=== PATIENT | male | born 1960 | race Caucasian/White ===

== ENCOUNTER 2019-05-21 07:49 | Day surgery (SDC) | payer OTHER ==
[~2019-05-21] VITALS: Ht 167.6 cm; Wt 87.5 kg
[2019-05-21] VITALS (15 sets, daily range): BP systolic 132–160; BP diastolic 88–104; PULSE 64–73; RESP 12–20; Ht 167.6 cm; Wt 87.5 kg
[~2019-05-21 07:49] MED LIST: CEFAZOLIN 2 GM/50 ML (PMX) 50 ML IVPB ONE; SOD CHLORIDE 0.9% 1,000 ML IV SCH; TRAM50TA PO
[2019-05-21] MEDS ORDERED: DEXAMETHASONE 4 MG/ML 5 ML INJ ONE (10:00)
[2019-05-21] MEDS ORDERED: MIDAZOLAM 1 MG/ML 2 ML INJ ONE (10:00)
[2019-05-21] MEDS ORDERED: CEFAZOLIN 1 GM INJ ONE (10:00)
[2019-05-21] MEDS ORDERED: NEOSTIGMINE 3 MG/3 ML SYRINGE ONE (10:00)
[2019-05-21] MEDS ORDERED: ONDANSETRON 4 MG INJ ONE (10:00)
[2019-05-21] MEDS ORDERED: ROCURONIUM 50 MG INJ ONE (10:00)
[2019-05-21] MEDS ORDERED: GLYCOPYRROLATE 0.4 MG INJ ONE (10:00)
[2019-05-21] MEDS ORDERED: ROPIVACAINE 0.5 % 30 ML VIAL ONE (10:00)
[2019-05-21] MEDS ORDERED: PROPOFOL 20 ML ONE (10:00)
[2019-05-21] MEDS ORDERED: FENTAnyl 50 MCG/ML VIAL ONE (10:01)
[2019-05-21] MEDS ORDERED: ONDANSETRON 4 MG INJ IV PRN (11:00)
[2019-05-21] MEDS ORDERED: ALBUTEROL 0.083% (NEB) 2.5 MG/3 ML AMP HHN PRN (11:00)
[2019-05-21] MEDS ORDERED: MIDAZOLAM 1 MG/ML 2 ML INJ IV PRN (11:00)
[2019-05-21] MEDS ORDERED: IPRATROPIUM (NEB) 0.5 MG/2.5 ML AMP HHN PRN (11:00)
[2019-05-21] MEDS ORDERED: LABETALOL HCL 20MG INJ IV PRN (11:00)
[2019-05-21] MEDS ORDERED: TRIMETHOBENZAMIDE 100 MG/ML VIAL IM PRN (11:00)
[2019-05-21] MEDS ORDERED: hydrALAzine 20 MG INJ IV PRN (11:00)
[2019-05-21] MEDS ORDERED: MEPERIDINE 25 MG INJ IV PRN (11:00)
[2019-05-21] MEDS ORDERED: OXYCODONE/ACETAMINOPHEN (5/325) TAB PO PRN ×2 (11:00)
[2019-05-21] MEDS ORDERED: EPHEDrine 25 MG/5 ML SYG IV PRN (11:00)
[2019-05-21] MEDS ORDERED: HYDROmorphONE 1 MG/5 ML IV SYRINGE IV PRN ×3 (11:00)
[2019-05-21] MEDS ORDERED: FENTAnyl 50 MCG/ML VIAL IV PRN ×3 (11:00)
[2019-05-21] MEDS ORDERED: DIPHENHYDRAMINE 50 MG INJ IV PRN (11:00)
[2019-05-21] MEDS ORDERED: POLYMYXIN/BACITRACIN 1L IRRIG IRR ONE (11:05)
[2019-05-21] MEDS ORDERED: LABETALOL HCL 20MG INJ ONE (11:29)
[2019-05-21] MEDS ORDERED: SUGAMMADEX SODIUM 200 MG/2 ML VIAL IV ONE (11:42)
[2019-05-21] MEDS ORDERED: HYDROCODONE/APAP (5/325) TAB PO ONE (12:00)
== END 2019-05-21 14:30 | disposition home or self-care (01) ==
LOC: SDS 07:49
PROVIDERS: ATTEND Surgery
DX: K40.90 Unilateral inguinal hernia, without obstruction or gangrene, not specified as recurrent (principal); I10 Essential (primary) hypertension; I25.10 Atherosclerotic heart disease of native coronary artery without angina pectoris; E66.9 Obesity, unspecified
CPT/HCPCS: 88302; C1781; J0690; J1100; J1170; J2250; J2405; J2710; J2795; J3010